=== PATIENT | female | born 1965 | race Two or more races ===

== ENCOUNTER 2018-08-15 10:46 | Outpatient (CLI) | payer OTHER ==
[~2018-08-15 10:46] MED LIST: ACTOS30 MG PO; ALTACE2.5 MG; AMARYL PO; ASA81 MG; COZAAR50 MG PO; GLUCOPHAGE XR750 MG; GLUMETZA1000 MG PO; GLYXAMBI PO; LANTUS100 U/ML SQ; LIPITOR20 MG; TORADOL60 MG IM
== END 2018-08-15 10:55 | disposition home or self-care (01) ==
LOC: NUCLEAR 10:46
DX: M81.0 Age-related osteoporosis without current pathological fracture (principal)

== ENCOUNTER 2018-08-15 13:25 | Outpatient (CLI) | payer OTHER | END 2018-08-15 13:33 | disposition home or self-care (01) | LOC: RAD 13:25 | DX: Z12.31 Encounter for screening mammogram for malignant neoplasm of breast (principal); Z87.898 Personal history of other specified conditions; N60.11 Diffuse cystic mastopathy of right breast; M17.11 Unilateral primary osteoarthritis, right knee | CPT/HCPCS: 73721 ==

== ENCOUNTER 2018-11-21 12:30 | Outpatient (CLI) | payer OTHER | END 2018-11-21 12:34 | disposition home or self-care (01) | LOC: LAB 12:30 | DX: N20.0 Calculus of kidney (principal); Z51.81 Encounter for therapeutic drug level monitoring ==

== ENCOUNTER 2018-11-24 07:59 | Outpatient (CLI) | payer OTHER | END 2018-11-24 08:06 | disposition home or self-care (01) | LOC: TOM 07:59 | DX: R10.11 Right upper quadrant pain (principal); R10.31 Right lower quadrant pain; R10.32 Left lower quadrant pain ==